=== PATIENT | male | born 1985 | race Caucasian/White ===

== ENCOUNTER 2021-05-02 01:00 | Emergency (ER) | payer OTHER ==
[~2021-05-02] VITALS: Ht 180.3 cm; Wt 71.7 kg
--- NOTE | 2021-05-02 01:56 | NUR ---
Patient discharged to home in stable condition. Written and verbal after care instructions given. Patient verbalizes understanding of instructions. Stressed follow up or return to ER for worsening s/s. pt ambulated with steady gait. denies pain. no sob. no chest pain.
[2021-05-02 01:58] VITALS: BP 110/75
== END 2021-05-02 01:59 | disposition home or self-care (01) ==
LOC: ER 01:09
DX: R07.9 Chest pain, unspecified (principal)
CPT/HCPCS: 71045; 93005; A4663